=== PATIENT | male | born 1965 | race African-American/Black ===

== ENCOUNTER → 2016-10-14 | Outpatient (CLI) | payer OTHER ==
[~2016-10-14] MED LIST: BLOOD PRESSURE; GOUT; [UNRECOGNIZED DRUG - REMARK]
--- NOTE | ~2016-10-14 | MR103 ---
[facility] A Service of [facility] / [facility] RADIOLOGY TEXT RESULTS PATIENT: MARIELENA CASTLE LOCATION: [facility] : [birth year] UNIT #: [id number] AGE: [address]: Ignacio Muñoz MD SEX: M ORDER DR: [id number] [address] [address] [id number] MR#: [id number] Acc #: [id number] NAME: MARIELENA CASTLE : 1965 SEX: M STUDY DATE/TIME: 10/14/2016 8:44 UNIT: [facility] ROOM: STUDY DESCRIPTION: MR Knee Wo Contrast Lt Attending Physician: Ignacio Muñoz M.D. Referring Physician: Ignacio Muñoz M.D. Ordering Physician: Ignacio Muñoz M.D. Primary Care Physician: Ignacio Muñoz M.D. [facility] REPORT This report is preliminary unless electronic signature is present. EXAM Left knee MRI without contrast, 10/14/2016. HISTORY 51-year-old male with left knee pain status post injury 10/12/2016. Twisting injury. Limited range of motion and swelling. No prior left knee surgery. COMPARISON None TECHNIQUE Routine, unenhanced, multiplanar, multisequence, high field MR imaging of the left knee was performed. FINDINGS There is a macerated, degenerative type tear involving the majority of the posterior horn and body segment of the lateral meniscus. Body segment is partially extruded from the lateral joint line. There is also a small vertical radial tear involving the free margin of the posterior horn medial meniscus near the posterior root attachment. Cruciate and collateral ligaments are intact. Extensor mechanism is intact. There is a moderate joint effusion. No popliteal cyst. 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 There is moderate to high-grade chondromalacia throughout the femoral trochlea. Extensive full-thickness articular cartilage loss along weightbearing surfaces in the lateral compartment. Generalized low grade chondral thinning along the weightbearing surfaces of the medial compartment. Prominent marginal [facility] A Service of [facility] RADIOLOGY TEXT RESULTS PATIENT: MARIELENA CASTLE LOCATION: [facility] : 69 UNIT #: [id number] AGE: [address]: Ignacio Muñoz MD SEX: M ORDER DR: osteophytes lateral joint line. Remainder of the bone marrow signal is within expected limits. The visualized musculature is unremarkable. IMPRESSION 1. Macerated, degenerative-type tear involving the majority of the posterior horn and body segment lateral meniscus. Partial extrusion of the body segment from the lateral joint line. 2. Small vertical radial tear involving the free margin of the posterior horn medial meniscus near the posterior root attachment. 3. No acute ligament injury. 4. Advanced lateral compartment arthrosis, detailed above. 5. Moderately advanced patellofemoral arthrosis, detailed above. 6. Generalized low grade chondral thinning along the weightbearing surfaces in the medial compartment. 7. Moderate joint effusion. Dictated by... Wilber Keating M.D. THIS IS AN ELECTRONICALLY VERIFIED REPORT Wilber Keating M.D. at 10/16/2016 8:29 AM NAKITA/abdiaziz TD: 10/15/2016 14:13 JOB #: [id number] [facility] REPORT Page 1 of 1
== END | disposition home or self-care (01) ==
LOC: SMRI 07:58
DX: M25.462 Effusion, left knee (principal); M25.662 Stiffness of left knee, not elsewhere classified; M23.252 Derangement of posterior horn of lateral meniscus due to old tear or injury, left knee; M23.222 Derangement of posterior horn of medial meniscus due to old tear or injury, left knee; M17.12 Unilateral primary osteoarthritis, left knee
CPT/HCPCS: 73721